=== PATIENT | female | born 1995 | race Caucasian/White ===

== ENCOUNTER 2021-08-01 06:09 | Inpatient (IN) | payer OTHER ==
[~2021-08-01] VITALS: Ht 147.3 cm; Wt 79.8 kg
--- NOTE | 2021-08-02 08:35 | NUR ---
08/02/21 0835 Sheets,Francesca 9669 PT ARRIVED TO PACU ON RA AND VSS, BABY ON CHEST WITH FBC RN. IV IN LEFT FOREARM AND INFUSING WITH 40 PIT, SITE WNL. PT REPORTS 3/10 PAIN AND TOLERABLE PAIN.
--- NOTE | 2021-08-02 13:11 | OR ---
[facility] [address] [place], [place] [address] Signed DATE OF OPERATION: 08/02/2021 SURGEON: Aquiles Simmons MD PREOPERATIVE DIAGNOSIS: Term , previous section. POSTOPERATIVE DIAGNOSIS: Term , previous section. PROCEDURE: Repeat low transverse segment section, delivery of live female infant. CARD CHECKER: Dr. Vaughan. ANESTHESIA: Spinal. ESTIMATED BLOOD LOSS: 500 mL. COMPLICATIONS: None. DRAINS: Jay to bladder. FINDINGS: Live female infant in LOT vertex presentation. Nuchal cord once, loose. Apgars 8 and 9. Weight 6 pounds 4 ounces. Normal uterus. Normal tubes and ovaries bilateral. DESCRIPTION OF PROCEDURE: The patient was brought to the operating room, placed in supine position after adequate spinal anesthesia was obtained, she was prepped and draped in usual sterile fashion. Jay catheter was placed in the bladder. A Pfannenstiel skin incision was made through previous skin incision. Using the scalpel, the subcutaneous tissue was dissected with Bovie and scalpel. The fascia was nicked with scalpel and extended in a transverse fashion using curved scissors. The underlying abdominal musculature was bluntly and Electronically Signed By: AQUILES SIMMONS MD 08/02/21 1311 PATIENT NAME: NORMA VÁZQUEZ OPERATIVE REPORT DATE OF : [birth year] REPORT #: [id number] PHYSICIAN: AQUILES SIMMONS MD PCP: AQUILES SIMMONS MD REPORT IS CONFIDENTIAL AND NOT TO BE RELEASED WITHOUT AUTHORIZATION [facility] [address] [place], [place] [address] Signed sharply from the fascia above and below the incision. The abdominal musculature was bluntly and sharply along the midline. The peritoneum was nicked with scissors and opened with blunt dissection. The Uri self-retaining retractor was inserted into the incision and tightened in place. The lower uterine segment was identified and noted to be away from the bladder, so a small javier was made in the lower uterine segment in the midline and finger dissection used to extend the incision in transverse fashion. Bulging bag of clear fluid came from the incision, this was opened with pickups with teeth. The infant was noted to be in vertex LOT presentation. The infant head delivered from the incision. Nuchal cord was removed from the neck and the rest of the infant easily delivered from the incision. The cord was doubly clamped and cut and infant passed off table in good condition to awaiting nurse. The placenta was manually removed. The uterine cavity explored with a lap pad to remove any retained membranes. An angle stitch of 0 Monocryl was placed at one end of the incision and a running locking stitch of 0-Monocryl starting at the other end used to close the incision. Second running stitch of 0 Monocryl was used to imbricate the 1st layer. Good hemostasis was noted. The entire pelvis was irrigated, suctioned, and examined, and any superficial bleeding spots cauterized with the Bovie. The Uri retractor was removed. Two small omental adhesions to the anterior abdominal wall were noted. These were clamped with Kendra clamps, cut and the pedicle was free tied with 2-0 chromic suture. The sheet of ACell was then placed over the lower uterine segment to help with healing. The peritoneum was then closed using running stitch of 2-0 Vicryl suture. The abdominal musculature was reapproximated using interrupted stitches of 0 Vicryl suture. The abdominal wall incision was irrigated, suctioned examined and any superficial bleeding spots cauterized with the Bovie. Powdered ACell was sprinkled over the abdominal musculature to help with healing. The fascia was closed using 2 running stitches of 0 Vicryl suture meeting in the midline. Subcutaneous tissue was irrigated, suctioned, and examined, and any bleeding spots cauterized with the Bovie. Subcutaneous tissue was closed using interrupted stitches of 3-0 Vicryl suture. The skin was reapproximated using skin clips. The patient tolerated the procedure well and went to the recovery room in good condition. The sponge, needle, and instrument count were correct at the end of the procedure. Aquiles Simmons MD MJB/MODL /[id number] Electronically Signed By: AQUILES SIMMONS MD 08/02/21 1311 PATIENT NAME: NORMA VÁZQUEZ OPERATIVE REPORT DATE OF : [birth year] REPORT #: [id number] PHYSICIAN: AQUILES SIMMONS MD PCP: AQUILES SIMMONS MD REPORT IS CONFIDENTIAL AND NOT TO BE RELEASED WITHOUT AUTHORIZATION [address] [address] Signed Copies: ~ Electronically Signed By: AQUILES SIMMONS MD 08/02/21 1311 PATIENT NAME: NORMA VÁZQUEZ OPERATIVE REPORT DATE OF : [birth year] REPORT #: [id number] PHYSICIAN: AQUILES SIMMONS MD PCP: AQUILES SIMMONS MD REPORT IS CONFIDENTIAL AND NOT TO BE RELEASED WITHOUT AUTHORIZATION
--- NOTE | 2021-08-03 10:42 | PR ---
[facility] [address] [place] [address] Signed PP Progress Notes Datetime Report Generated by CPN: 08/03/2021 10:42 SUBJECTIVE: [id number] Pain: Within Normal Limits Nausea/Vomiting: Denies Vital Signs: [id number] Vital Signs: Reviewed; Within Normal Limits Notable Details: PP Hgb/Hct = 9.4/28.1 Abdomen/Uterus: Normal Lochia: Normal Extremities: Normal Incision: Normal IMPRESSION/PLAN/PROCEDURES: [id number] Impression: Normal Progression Plan: Continue Present Management Procedures: None Progress Notes: Doing well without complaint, tolerating food well, up moving without difficulty, voiding without problem. Signing Physician: Loreto Zuluaga MD Copies: ~ *Electronically Signed* 08/03/21 1042 LORETO ZULUAGA MD PATIENT NAME: NORMA VÁZQUEZ PROGRESS NOTE DATE OF : [birth year] PHYSICIAN: LORETO ZULUAGA MD RPT #: [id number] REPORT IS CONFIDENTIAL AND NOT TO BE RELEASED WITHOUT AUTHORIZATION
--- NOTE | 2021-08-04 12:11 | PR ---
[facility] [address] [place] [place] [address] Signed PP Progress Notes Datetime Report Generated by CPN: 08/04/2021 12:11 SUBJECTIVE: [id number] Pain: Within Normal Limits Nausea/Vomiting: Denies Vital Signs: [id number] Vital Signs: Reviewed; Within Normal Limits Notable Details: PP Hgb/Hct = 9.4/28.1 Abdomen/Uterus: Normal Lochia: Normal Extremities: Normal Incision: Normal IMPRESSION/PLAN/PROCEDURES: [id number] Impression: Normal Progression Other Impression: PP/PO Anemia Plan: Discharge Procedures: None Progress Notes: Doing well, without complaint, ready to go home. Signing Physician: Loreto Zuluaga MD Copies: ~ *Electronically Signed* 08/04/21 1211 LORETO ZULUAGA MD PATIENT NAME: NORMA VÁZQUEZ PROGRESS NOTE DATE OF : [birth year] PHYSICIAN: LORETO ZULUAGA MD RPT #: [id number] REPORT IS CONFIDENTIAL AND NOT TO BE RELEASED WITHOUT AUTHORIZATION
== END 2021-08-04 12:40 | disposition home or self-care (01) | DRG 788 ==
LOC: FBC 08-02 05:23
PROVIDERS: ADMIT General Practice; ATTEND General Practice
PROC: 10D00Z1 Extraction of Products of Conception, Low, Open Approach (ICD-10-PCS; principal; 2021-08-02 06:45)
DX: O34.211 Maternal care for low transverse scar from previous cesarean delivery (principal); Z3A.39 39 weeks gestation of pregnancy; Z37.0 Single live birth; O99.344 Other mental disorders complicating childbirth; F31.9 Bipolar disorder, unspecified; O99.02 Anemia complicating childbirth; D64.89 Other specified anemias
CPT/HCPCS: 01961; 85027; A9270; J0690; J1885; J2001; J2274; J2370; J2405; J2590; J2765; J7121